=== PATIENT | male | born 1940 | race Caucasian/White ===

== ENCOUNTER 2017-03-12 14:46 | Inpatient (IN) | payer MEDICARE, OTHER ==
[~2017-03-12] VITALS: Ht 170.2 cm; Wt 102.1 kg
[2017-03-12] MEDS ORDERED: CEFEPIME HCL 1 GM VIAL IV STA (18:14)
[2017-03-12] MEDS ORDERED: VANCOMYCIN 1GM/NS 250 ML 250 ML IV STA (18:14)
[2017-03-12] MEDS ORDERED: ONDANSETRON HCL INJ 2 MG/ML VIAL IV PRN (18:15)
[2017-03-12] MEDS ORDERED: HYDROMORPHONE 1MG/1ML INJ IV PRN (18:15)
[2017-03-12 18:25] LABS: BASOPHILS # (AUTO) 0.1 (0.0-0.1); BASOPHILS % 0.6 % (0.0-1.0); EOSINOPHILS # (AUTO) 0.2 (0.0-0.4); EOSINOPHILS % 1.2 % (0.0-6.0); HEMATOCRIT 44.2 % (38.2-49.6); HEMOGLOBIN 14.4 g/dL (14.0-18.0); LYMPHOCYTES # (AUTO) 3.2 (1.0-3.2); LYMPHOCYTES % 24.6 % (18.0-39.1); MEAN CORPUSCULAR HGB CONC 32.6 g/dL (31-35); MEAN CORPUSCULAR VOLUME 98.2 fL (81-99); MONOCYTES # (AUTO) 1.2 (0.2-0.8); MONOCYTES % 9.1 % (4.4-11.3); NEUTROPHILS # (AUTO) 8.1 (2.1-6.9); NEUTROPHILS % 63.6 % (38.7-80.0); PLATELET COUNT 333 x10e3/uL (140-360); RED CELL DISTRIBUTION WIDTH 11.8 % (11.7-14.4)
[2017-03-12 18:52] LABS: ALANINE AMINOTRANSFERASE 42 IU/L (0-55); ALBUMIN 3.4 g/dL (3.5-5.0); ALBUMIN/GLOBULIN RATIO 0.6 (0.8-2.0); ALKALINE PHOSPHATASE 85 IU/L (40-150); ANION GAP 15.8 mmol/L (8-16); BLOOD UREA NITROGEN 10 mg/dL (7-26); BUN/CREATININE RATIO 11 (6-25); CARBON DIOXIDE 29 mmol/L (22-29); CHLORIDE 101 mmol/L (98-107); CREATININE, SERUM 0.88 mg/dL (0.72-1.25); EST GLOMERULAR FILTRATION RATE > 60 ML/MIN (60-); GLUCOSE 110 mg/dL (74-118); POTASSIUM 3.8 mmol/L (3.5-5.1); SODIUM 142 mmol/L (136-145)
--- NOTE | 2017-03-12 18:59 | Diagnostic Imaging Report ---
Portable chest x-ray INDICATION: Cellulitis COMPARISON: Chest x-ray 08/11/2009 FINDINGS: Frontal view of the chest obtained at 1829 hours. HEART AND MEDIASTINUM: The cardiomediastinal silhouette is normal. LINES: None. LUNGS: The lungs are well inflated and clear. No pneumonia or pulmonary edema. PLEURA: The costophrenic angles are sharp. No pneumothorax. BONES AND SOFT TISSUES: No focal osseous lesion. The soft tissues are normal. IMPRESSION: No acute cardiopulmonary process. Signed by: Dr. Gypsy Sharp MD on 03/12/2017 6:56 PM
[2017-03-12] MEDS ORDERED: CLINDAMYCIN HC300 MG PO (19:22)
[2017-03-12] MEDS ORDERED: LASIX40 MG PO (19:22)
[2017-03-12] MEDS ORDERED: ALLOPURINOL100 MG PO (19:22)
[2017-03-12] MEDS ORDERED: FELODIPINE ER2.5 MG PO (19:22)
[2017-03-12] MEDS ORDERED: ATENOLOL50 MG PO (19:27)
[2017-03-12] MEDS: SODIUM CHLORIDE FLUSH 10 ML SYR INJ PRN (22:45)
[2017-03-13] VITALS: BP 159/74
[2017-03-13 04:00] VITALS: BP 140/72
[2017-03-13 07:52] VITALS: BP 174/80
[2017-03-13 11:37] VITALS: BP 164/77
[2017-03-13] MEDS ORDERED: SODIUM CHLORIDE 0.9% 250ML 250 ML ONE (12:54)
[2017-03-13] MEDS: VANCOMYCIN 1GM/NS 250 ML 250 ML IV SCH (13:06)
[2017-03-13] MEDS: WATER STERILE 10 ML VIAL IV SCH ×2 (13:06→22:19)
[2017-03-13] MEDS: CEFEPIME HCL 1 GM VIAL IV SCH ×2 (13:06→22:19)
[2017-03-13 15:32] VITALS: BP 171/81
--- NOTE | 2017-03-13 18:52 | Diagnostic Imaging Report ---
PROCEDURE: A single AP view of the chest. COMPARISON chest radiograph 03/12/2017 INDICATIONS: LINE PLACEMENT FINDINGS: Lines/tubes: Right PICC catheter tip overlies the mid superior vena cava. Lungs: The lungs are moderately inflated. Mild bibasilar atelectasis. There is no evidence of pneumonia or pulmonary edema. Pleura: There is no pleural effusion or pneumothorax. Heart and mediastinum: The heart and the mediastinum are unremarkable. Bones: No acute bony abnormality. IMPRESSION: 1. Right PICC catheter tip overlies the mid superior vena cava. 2. No acute thoracic abnormalities. Dictated by: Real Topete M.D. on 03/13/2017 at 19:01 Electronically approved by: Real Topete M.D. on 03/13/2017 at 19:01
--- NOTE | 2017-03-13 19:15 | History and Physical ---
HISTORY OF PRESENT ILLNESS: Mr. De La Vega is a very pleasant 76-year-old white male who . The patient comes in with redness and redness and swelling of his leg which he had for a week, which is getting progressively worse while he was taking oral antibiotic. I felt he was failing oral antibiotics, and so he was admitted for IV, but also the patient has shortness of breath which we have been dealing with for some time. PAST MEDICAL HISTORY: Obesity and he thinks he may have diabetes. He is not so sure. ALLERGIES: NKA. PAST SURGICAL HISTORY: Denies. FAMILY HISTORY: Otherwise unremarkable. SOCIAL HISTORY: There is no smoking, drug abuse or alcohol abuse. REVIEW OF SYSTEMS: HEENT: Negative. PULMONARY: Negative. CARDIAC: Negative. He said he has low heart rate. I noticed he had shortness of breath even though he did not complain of it at the time he spent with me. Review of other systems otherwise unremarkable except for the pain and the redness and swelling of his leg he denies any pain. PHYSICAL EXAMINATION: GENERAL: Alert, and oriented and does not seem to be in acute distress. He is obese. VITAL SIGNS: Stable, currently afebrile. HEENT: Not icteric. Normocephalic. NECK: Supple. CHEST: Clear bilaterally. HEART: S1 and S2, no S3 or S4 and no murmur. ABDOMEN: Soft. Obese. EXTREMITIES: He does have redness and swelling of his whole leg from the toes all the way to the knee. MEDICATIONS: List reviewed. LABORATORY DATA: Reviewed. IMPRESSION: Cellulitis in a patient with obesity, failed oral antibiotic. Will put him back on vancomycin and cefepime. Will see how he does over the next few days. I am concerned he has underlying history of congestive heart failure. Will consult cardiology to see the patient. Will follow with you. Job#: [id number]
[2017-03-13 20:00] VITALS: BP 139/67
[2017-03-13] MEDS ORDERED: ZOLPIDEM TARTRATE 5 MG TAB PO PRN (20:30)
[2017-03-14] MEDS ORDERED: SODIUM CHLORIDE 0.9% 250ML 250 ML ONE (01:24)
[2017-03-14] MEDS: VANCOMYCIN 1GM/NS 250 ML 250 ML IV SCH ×3 (01:43→23:09)
[2017-03-14 04:00] VITALS: BP 147/67
[2017-03-14] MEDS: WATER STERILE 10 ML VIAL IV SCH ×3 (06:00→21:26)
[2017-03-14] MEDS: CEFEPIME HCL 1 GM VIAL IV SCH ×3 (06:02→21:26)
[2017-03-14 08:15] VITALS: BP 159/79
[2017-03-14 10:03] LABS: BASOPHILS # (AUTO) 0.1 (0.0-0.1); BASOPHILS % 0.6 % (0.0-1.0); EOSINOPHILS # (AUTO) 0.1 (0.0-0.4); EOSINOPHILS % 1.5 % (0.0-6.0); HEMATOCRIT 38.7 % (38.2-49.6); HEMOGLOBIN 12.6 g/dL (14.0-18.0); LYMPHOCYTES # (AUTO) 2.3 (1.0-3.2); LYMPHOCYTES % 25.6 % (18.0-39.1); MEAN CORPUSCULAR HGB CONC 32.6 g/dL (31-35); MEAN CORPUSCULAR VOLUME 98.2 fL (81-99); MONOCYTES # (AUTO) 0.8 (0.2-0.8); MONOCYTES % 8.9 % (4.4-11.3); NEUTROPHILS # (AUTO) 5.6 (2.1-6.9); PLATELET COUNT 327 x10e3/uL (140-360); RED BLOOD COUNT 3.94 x10e6/uL (4.3-5.7); RED CELL DISTRIBUTION WIDTH 11.6 % (11.7-14.4)
[2017-03-14 10:26] LABS: ALANINE AMINOTRANSFERASE 34 IU/L (0-55); ALBUMIN 2.7 g/dL (3.5-5.0); ALBUMIN/GLOBULIN RATIO 0.6 (0.8-2.0); ALKALINE PHOSPHATASE 63 IU/L (40-150); ANION GAP 13.2 mmol/L (8-16); BLOOD UREA NITROGEN 10 mg/dL (7-26); BUN/CREATININE RATIO 11 (6-25); CALCIUM 9.5 mg/dL (8.4-10.2); CARBON DIOXIDE 31 mmol/L (22-29); CHLORIDE 101 mmol/L (98-107); CHOL/HDL RATIO 4.5 (3.9-4.7); CHOLESTEROL 138 MD/DL (0-199); CREATININE, SERUM 0.94 mg/dL (0.72-1.25); EST GLOMERULAR FILTRATION RATE > 60 ML/MIN (60-); GLUCOSE 188 mg/dL (74-118); HDL CHOLESTEROL 31 MG/DL (40-60); LDL CHOLESTEROL 80 MG/DL (60-130); POTASSIUM 4.2 mmol/L (3.5-5.1); SODIUM 141 mmol/L (136-145); TRIGLYCERIDES 133 MG/DL (0-149)
[2017-03-14] MEDS: ASPIRIN 325 MG TAB PO SCH (11:58)
[2017-03-14] MEDS: FUROSEMIDE 40 MG TAB PO SCH (11:59)
[2017-03-14] MEDS: ATENOLOL 50 MG TAB PO SCH (11:59)
[2017-03-14] MEDS: LOSARTAN POTASSIUM 25 MG TAB PO SCH (11:59)
[2017-03-14 12:34] VITALS: BP 161/95
--- NOTE | 2017-03-14 13:37 | Consultation ---
DATE OF CONSULTATION: March 14, 2017 CARDIOLOGY CONSULTATION REASON FOR CONSULTATION: CHF. HISTORY OF PRESENT ILLNESS: This is a 76-year-old male with known history of hypertension, gout, questionable diabetes, and obesity. Patient presents to [facility] in the ER with complaint of left lower extremity redness, swelling. Was on antibiotic therapy as outpatient per his ID physician; however, failed p.o. outpatient therapy, was therefore recommended to go to the hospital for further evaluation and aggressive antibiotic therapy. Cardiology was consulted secondary to shortness of breath symptoms for some time. Patient was seen in room, in no acute distress, family at the bedside. Reports left lower extremity swelling for 7 days, was started on antibiotics; however, swelling and redness became worse. Therefore, came to the ER. Regarding his shortness of breath, patient states he has been off and on shortness of breath for some time, which he thinks is secondary to his weight. Patient denies any chest pains with activities; however, does get short of breath with mild to moderate activities. Positive for orthopnea. Denies any PND. Positive for lower extremity edema. PAST MEDICAL HISTORY 1. Obesity. 2. Gout. 3. Hypertension. 4. Questionable diabetes. PAST SURGICAL HISTORY 1. Umbilical hernia repair. 2. Appendectomy. 3. Bilateral cataract surgery. 4. Neck fusion. SOCIAL HISTORY: He is . Retired longshoreman and welder assistant. Denies any tobacco use. However, did state he did smoke for about 1 year when he was 19 years old. However, has not smoked since then. Positive for alcohol use, whiskey 4 to 6 shots per day. FAMILY HISTORY: Mother in the age of 70s; however, he is unknown of cause. Father at the age of 80, unknown cause. MEDICATIONS 1. Felodipine 2.5 once a day. 2. Allopurinol 100 mg once a day. 3. Atenolol 100 mg once a day. 4. Lasix 40 mg once a day. ALLERGIES: NO KNOWN ALLERGIES. REVIEW OF SYSTEMS GENERAL: Denies any weight changes, any fatigue, weakness, fevers, chills, night sweats. SKIN-[place]: Positive for soreness, redness left lower extremity. HEENT: Denies any traumas, any headaches, any nausea, vomiting, vision changes. Positive for ringing in the ears. Denies any hearing loss. Denies any stuffiness or anuria, any epistaxis. Denies any bleeding gums, hoarseness, sore throats. Positive for neck pains. CARDIAC: Denies any chest pain. Positive for dyspnea on exertion. Positive for orthopnea. Denies any PND. Positive for lower extremity edema, left greater than right. RESPIRATORY: Positive for shortness of breath with activities. Denies any wheezing, coughing, any sputum, any hemoptysis. GI: Good appetite. Denies any nausea, vomiting, diarrhea, constipation, any melena, hematemesis, hematochezia. URINARY: Denies any frequency, urgency, dysuria, hematuria, nocturia. VASCULAR: Positive for lower extremity edema, left greater than right. MUSCULOSKELETAL: Denies any muscle weakness. Positive for generalized joint pains, back pains and neck pain. NEUROLOGIC: Denies any numbness, tingling, tremors, paralysis, fainting, blackouts. ENDOCRINE: Denies any heat or cold intolerance, any excessive sweating, polyuria, polydipsia, polyphagia. PHYSICAL EXAMINATION VITAL SIGNS: Temperature 97.5, pulse 77, respiratory rate 20, blood pressure 159/79. Height 67 inches. Weight 225 pounds. GENERAL: Appears stated age, in no acute distress. Reliable informant. SKIN-[place]: Left lower extremity bruise, redness, swelling, and chronic venous changes. HEENT: Normocephalic. Pupils equal and reactive. Extraocular motor intact. Oral mucosa pink. No thyromegaly. No JVD. No carotid bruits noted. HEART-DE [place]: Regular rate and rhythm. Soft systolic murmur at the right upper sternal border. PMI about 5th intercostal space. LUNG-[place]: Bilateral breath sounds clear to auscultation; however, decreased in the bases. ABDOMEN: Soft, nontender. Distended. However, he is obese. No organomegaly noted. No CVA tenderness. MUSCULOSKELETAL: Good muscle strength throughout. VASCULAR: +2 bilateral radial pulses, +2 bilateral fem pulses, +1 DP/PT pulses bilaterally. NEUROLOGIC: Cranial nerves 2-12 seem intact. LAB-DE [place]: Sodium 142, potassium 3.8, chloride 29, BUN 10, creatinine 0.8. White count 12.7, hemoglobin 14, hematocrit 44, platelets 333. Chest x-ray showing no acute cardiopulmonary process. EKG pending. ASSESSMENT 1. Left leg cellulitis. 2. Dyspnea on exertion. 3. Hypertension. 4. Gout. 5. Obesity. 6. Obstructive sleep apnea. 7. Coronary artery disease likely in this patient. PLAN-[place] 1. Patient presents with lower extremity cellulitis and on IV antibiotics per ID service. 2. From a cardiac standpoint, patient denies any active chest pain symptoms; however, does get short of breath with minimal activities. 3. Will go ahead and order an echo to evaluate heart function and structure. Also will go ahead and get an EKG for baseline status. 4. Labs. Will go ahead and get some labs, lipid panel, BNP, A1c, TSH. 5. Will go ahead and restart his beta jered and Lasix therapy, plus will add a low-dose ARB therapy. 6. Long discussion with patient and family members. CAD is very likely given his risk factors and age. Advised that he would benefit from a stress test in the near future once his cellulitis has improved. Thank you very much for this consult. Will continue to follow patient and adjust therapy as clinical course progresses. Dictated by: Kashmir Michaels NP Seen and examined Agree with above Case discussed and explained to patient and family Will observe cellulitis healing progress DVT prophylaxis Job#: [id number] EV XI
[2017-03-14 16:28] VITALS: BP 160/88
[2017-03-14] MEDS: ENOXAPARIN SOD INJ 40 MG/0.4 ML SYR SC SCH (16:52)
[2017-03-14 20:00] VITALS: BP 152/77
[2017-03-14] MEDS: ATORVASTATIN 10 MG TAB PO SCH (21:25)
[2017-03-15] VITALS: BP 150/71
[2017-03-15 04:36] VITALS: BP 156/72
[2017-03-15] MEDS: CEFEPIME HCL 1 GM VIAL IV SCH ×3 (05:42→21:56)
[2017-03-15] MEDS: WATER STERILE 10 ML VIAL IV SCH ×3 (05:42→21:56)
[2017-03-15 07:49] VITALS: BP 130/85
[2017-03-15] MEDS: ASPIRIN 325 MG TAB PO SCH (08:47)
[2017-03-15] MEDS: FUROSEMIDE 40 MG TAB PO SCH (08:47)
[2017-03-15] MEDS: LOSARTAN POTASSIUM 25 MG TAB PO SCH (08:47)
[2017-03-15] MEDS: ATENOLOL 50 MG TAB PO SCH (08:47)
[2017-03-15] MEDS: VANCOMYCIN 1GM/NS 250 ML 250 ML IV SCH ×2 (11:38→23:50)
[2017-03-15 12:13] VITALS: BP 145/77
[2017-03-15] MEDS: ENOXAPARIN SOD INJ 40 MG/0.4 ML SYR SC SCH (16:44)
[2017-03-15 20:00] VITALS: BP 141/96
[2017-03-15] MEDS: ATORVASTATIN 10 MG TAB PO SCH (21:56)
[2017-03-16 00:12] VITALS: BP 135/62
[2017-03-16 04:25] VITALS: BP 153/67
[2017-03-16] MEDS: CEFEPIME HCL 1 GM VIAL IV SCH ×3 (06:14→21:35)
[2017-03-16] MEDS: WATER STERILE 10 ML VIAL IV SCH ×3 (06:14→21:35)
[2017-03-16 08:05] VITALS: BP 161/77
[2017-03-16] MEDS: FUROSEMIDE 40 MG TAB PO SCH (08:43)
[2017-03-16] MEDS: ATENOLOL 50 MG TAB PO SCH (08:43)
[2017-03-16] MEDS: ASPIRIN 325 MG TAB PO SCH (08:43)
[2017-03-16] MEDS: LOSARTAN POTASSIUM 25 MG TAB PO SCH (08:43)
[2017-03-16 11:47] VITALS: BP 138/75
[2017-03-16] MEDS: VANCOMYCIN 1GM/NS 250 ML 250 ML IV SCH ×2 (13:18→23:31)
--- NOTE | 2017-03-16 15:17 | Progress Note ---
DATE: March 16, 2017 Mr. De La Vega continues to do well. His leg is slowly better, less red. PHYSICAL EXAMINATION GENERAL: He is alert and oriented. Does not seem in acute distress. VITALS: Stable, afebrile. HEENT: Nonicteric. NECK: Supple. CHEST: Clear. COR: No murmur. ABDOMEN: Soft. Bowel sounds are present. No tenderness. EXTREMITIES: The leg is still erythematous, but better. IMPRESSION: Cellulitis, slowly better. Continue IV antibiotics. Possible discharge home tomorrow. Job#: [id number]
[2017-03-16 16:01] VITALS: BP 135/90
[2017-03-16] MEDS: ENOXAPARIN SOD INJ 40 MG/0.4 ML SYR SC SCH (17:28)
[2017-03-16 21:24] VITALS: BP 167/73
[2017-03-16] MEDS: ATORVASTATIN 10 MG TAB PO SCH (21:35)
[2017-03-16] MEDS: SODIUM CHLORIDE FLUSH 10 ML SYR INJ PRN (21:36)
[2017-03-17 00:52] VITALS: BP 152/66
[2017-03-17] MEDS: CEFEPIME HCL 1 GM VIAL IV SCH (05:45)
[2017-03-17] MEDS: WATER STERILE 10 ML VIAL IV SCH (05:45)
[2017-03-17 06:04] VITALS: BP 140/66
[2017-03-17 08:00] VITALS: BP 161/74
[2017-03-17] MEDS: ASPIRIN 325 MG TAB PO SCH (09:31)
[2017-03-17] MEDS: FUROSEMIDE 40 MG TAB PO SCH (09:31)
[2017-03-17] MEDS: LOSARTAN POTASSIUM 25 MG TAB PO SCH (09:31)
[2017-03-17] MEDS: ATENOLOL 50 MG TAB PO SCH (09:32)
[2017-03-17] MEDS ORDERED: ALTEPLASE RECOMBINANT 2 MG/2 ML VIAL IV ONE (10:45)
--- NOTE | 2017-03-17 11:39 | Discharge Summary ---
ADMITTING DIAGNOSES 1. Cellulitis. 2. Obesity. DISCHARGE DIAGNOSES 1. Cellulitis. 2. Obesity. This patient, who is a very pleasant, 76-year-old white male, came in with swelling of his legs. He failed outpatient oral antibiotic, 2 different courses. He was sent to the hospital for IV antibiotic. The patient started on intravenous antibiotics, namely vancomycin and cefepime, then subsequently showed improvement, but it was very slow. Toone to be on proper intravenous antibiotic, probably has to do with underlying history of obesity as well as lymphedema. The patient has a PICC line in. He was seen by cardiology, who felt there is no congestive heart failure. The patient is going to be discharged home with IV clindamycin and cefepime. Will reassess in a week. Patient will follow up with me in a week. MILVIA DIAZ MD Job#: [id number]
[2017-03-17 12:00] VITALS: BP 142/76
[2017-03-17] MEDS ORDERED: WATER STERILE 10 ML VIAL IV SCH (14:00)
[2017-03-17] MEDS ORDERED: CLINDAMYCIN 600MG/D5W 50ML 50 ML IV SCH (14:00)
[2017-03-17] MEDS ORDERED: CEFTAZIDIME 1 GM VIAL IV SCH (14:00)
[2017-03-17] MEDS ORDERED: CEFTAZIDIME IV SCH (14:00)
[2017-03-17] MEDS ORDERED: WATER STERILE IV SCH (14:00)
== END 2017-03-17 14:34 | disposition home or self-care (01) | DRG 603 ==
LOC: ER 14:46 → ERHOLD 18:41 → MED/SURG2 21:33
PROVIDERS: ADMIT Internal Medicine Infectious Disease; ATTEND Internal Medicine Infectious Disease
PROC: 02HV33Z Insertion of Infusion Device into Superior Vena Cava, Percutaneous Approach (ICD-10-PCS; principal; 2017-03-13)
DX: L03.116 Cellulitis of left lower limb (principal); I11.0 Hypertensive heart disease with heart failure; I50.9 Heart failure, unspecified; E88.09 Other disorders of plasma-protein metabolism, not elsewhere classified; L03.115 Cellulitis of right lower limb; E66.9 Obesity, unspecified; Z68.35 Body mass index [BMI] 35.0-35.9, adult; I88.1 Chronic lymphadenitis, except mesenteric; I89.0 Lymphedema, not elsewhere classified; G47.33 Obstructive sleep apnea (adult) (pediatric); I25.10 Atherosclerotic heart disease of native coronary artery without angina pectoris; M10.9 Gout, unspecified; I87.2 Venous insufficiency (chronic) (peripheral)
CPT/HCPCS: 36415; 36569; 71010; 80053; 80061; 80202; 82948; 83036; 83880; 84443; 85025; 93005; 93306; 93970; 99284; J0692; J1650; J2997; J3370; J7050

== ENCOUNTER → 2017-05-29 | Outpatient (CLI) | payer MEDICARE, OTHER ==
[~2017-05-29] MED LIST: ALLOPURINOL100 MG PO; ATENOLOL50 MG PO; CLINDAMYCIN HC150 MG PO; CLINDAMYCIN HC300 MG PO; FELODIPINE ER2.5 MG PO; GARLIC200 MG PO; LASIX40 MG PO; MULTI-VITAMIN1 EACH PO; POTASSIUM CHLO20 ME1 PO; VITAMIN B-1250 MCG PO; VITAMIN D400 UNIT PO; VITAMIN E400 UNI1 PO
[2017-05-29 13:47] LABS: BASOPHILS # (AUTO) 0.1 (0.0-0.1); BASOPHILS % 0.8 % (0.0-1.0); EOSINOPHILS # (AUTO) 0.1 (0.0-0.4); EOSINOPHILS % 1.2 % (0.0-6.0); HEMATOCRIT 42.3 % (38.2-49.6); HEMOGLOBIN 13.8 g/dL (14.0-18.0); LYMPHOCYTES # (AUTO) 3.9 (1.0-3.2); LYMPHOCYTES % 42.2 % (18.0-39.1); MEAN CORPUSCULAR HEMOGLOBIN 30.6 pg (28-32); MEAN CORPUSCULAR HGB CONC 32.6 g/dL (31-35); MEAN CORPUSCULAR VOLUME 93.8 fL (81-99); MONOCYTES # (AUTO) 0.9 (0.2-0.8); MONOCYTES % 9.8 % (4.4-11.3); NEUTROPHILS # (AUTO) 4.2 (2.1-6.9); NEUTROPHILS % 45.7 % (38.7-80.0); PLATELET COUNT 218 x10e3/uL (140-360); RED BLOOD COUNT 4.51 x10e6/uL (4.3-5.7); RED CELL DISTRIBUTION WIDTH 14.7 % (11.7-14.4)
[2017-05-29 14:07] LABS: ALANINE AMINOTRANSFERASE 20 IU/L (0-55); ALBUMIN 3.6 g/dL (3.5-5.0); ALBUMIN/GLOBULIN RATIO 0.9 (0.8-2.0); ALKALINE PHOSPHATASE 66 IU/L (40-150); BLOOD UREA NITROGEN 13 mg/dL (7-26); BUN/CREATININE RATIO 13 (6-25); CALCIUM 8.9 mg/dL (8.4-10.2); CARBON DIOXIDE 31 mmol/L (22-29); CHLORIDE 102 mmol/L (98-107); EST GLOMERULAR FILTRATION RATE > 60 ML/MIN (60-); GLUCOSE 144 mg/dL (74-118); SODIUM 142 mmol/L (136-145)
--- NOTE | 2017-05-29 14:33 | Diagnostic Imaging Report ---
PROCEDURE:CHEST 2 VIEWS TECHNIQUE:PA and lateral chest INDICATION:Preoperative evaluation for cystic mass surgery. COMPARISON:[facility], DX, CHEST XRAY LINE PLACEMENT, 03/13/2017, 18:04. FINDINGS: Lungs are clear and symmetrically inflated. No pleural effusions. Enlarged cardiac silhouette. Mild central vascular prominence. Mildly tortuous thoracic aorta. Intact skeleton. CONCLUSION: Cardiomegaly with mild central vascular congestion. Dictated by: Reji Belcher M.D. on 05/29/2017 at 14:33 Electronically approved by: Reji Belcher M.D. on 05/29/2017 at 14:33
== END ==
LOC: DX 17:28 → EDSTATUS 05-30 09:30
PROVIDERS: ATTEND Surgery
DX: Z01.818 Encounter for other preprocedural examination (principal); Z53.8 Procedure and treatment not carried out for other reasons; D48.7 Neoplasm of uncertain behavior of other specified sites
CPT/HCPCS: 36415; 71046; 80053; 85025; 93005

== ENCOUNTER → 2017-07-01 | Day surgery (SDC) | payer MEDICARE, OTHER ==
[2017-06-30 10:19] LABS: BASOPHILS # (AUTO) 0.1 (0.0-0.1); BASOPHILS % 1.2 % (0.0-1.0); EOSINOPHILS # (AUTO) 0.2 (0.0-0.4); EOSINOPHILS % 2.2 % (0.0-6.0); HEMATOCRIT 46.4 % (38.2-49.6); HEMOGLOBIN 15.7 g/dL (14.0-18.0); LYMPHOCYTES # (AUTO) 2.8 (1.0-3.2); LYMPHOCYTES % 40.2 % (18.0-39.1); MEAN CORPUSCULAR HEMOGLOBIN 30.8 pg (28-32); MEAN CORPUSCULAR HGB CONC 33.8 g/dL (31-35); MEAN CORPUSCULAR VOLUME 91.2 fL (81-99); MONOCYTES # (AUTO) 0.7 (0.2-0.8); MONOCYTES % 9.5 % (4.4-11.3); NEUTROPHILS # (AUTO) 3.2 (2.1-6.9); NEUTROPHILS % 46.8 % (38.7-80.0); PLATELET COUNT 229 x10e3/uL (140-360); RED BLOOD COUNT 5.09 x10e6/uL (4.3-5.7); RED CELL DISTRIBUTION WIDTH 13.2 % (11.7-14.4)
[2017-06-30 10:26] LABS: INR 1.23; PROTHROMBIN TIME 14.6 seconds (11.9-14.5)
[2017-06-30 10:34] LABS: ALANINE AMINOTRANSFERASE 29 IU/L (0-55); ALBUMIN 3.8 g/dL (3.5-5.0); ALBUMIN/GLOBULIN RATIO 0.9 (0.8-2.0); ALKALINE PHOSPHATASE 68 IU/L (40-150); ANION GAP 14.9 mmol/L (8-16); BLOOD UREA NITROGEN 17 mg/dL (7-26); BUN/CREATININE RATIO 18 (6-25); CALCIUM 9.4 mg/dL (8.4-10.2); CARBON DIOXIDE 26 mmol/L (22-29); CHLORIDE 103 mmol/L (98-107); CHOL/HDL RATIO 2.8 (3.9-4.7); CHOLESTEROL 156 MD/DL (0-199); CREATININE, SERUM 0.96 mg/dL (0.72-1.25); EST GLOMERULAR FILTRATION RATE > 60 ML/MIN (60-); GLUCOSE 120 mg/dL (74-118); HDL CHOLESTEROL 56 MG/DL (40-60); LDL CHOLESTEROL 66 MG/DL (60-130); POTASSIUM 3.9 mmol/L (3.5-5.1); SODIUM 140 mmol/L (136-145); TRIGLYCERIDES 168 MG/DL (0-149)
[~2017-07-01] VITALS: Ht 170.2 cm; Wt 104.3 kg
[~2017-07-01] MED LIST changes: +ASPIRIN 325 MG TAB ONE; +BIVALIRUDIN 250 MG/VIAL IV ONE; +FENTANYL CITRATE/PF 100MCG/2 ML INJ ONE; +HEPARIN SOD (PORCINE) 1000 UNIT/ML 30ML ONE; +HEPARIN SOD/SOD CHLORIDE 2,000 ML ONE; +HYDROMORPHONE 1MG/1ML INJ IV PRN; +IOPAMIDOL 370 MG/ML 200 ML INFUS..BTL INJ ONE; +LIDOCAINE HCL 2% LOCAL 20 ML VIAL ONE; +MIDAZOLAM HCL 2 MG/2 ML VIAL ONE; +NITROGLYCERIN/D5W 200 MCG/ML 250 ML ONE; +PRASUGREL 10 MG TAB ONE; +SODIUM CHLORIDE 0.9% 1000ML 1,000 ML IV SCH; +SODIUM CHLORIDE 0.9% 1000ML 1,000 ML ONE; +SODIUM CHLORIDE 0.9% 50ML 50 ML ONE
[2017-07-01 09:23] VITALS: BP 126/76
--- OUTSIDE RECORDS SUMMARY | 2017-07-01 09:40 | XMS REPORT ---
Author Author [facility] Address Unknown Phone Unavailable Care Team Providers Care System Administrator Name Role Phone BERNY ROD Unavailable Unavailable MILVIA DIAZ Unavailable Unavailable Problems This patient has no known problems. Allergies, Adverse Reactions, Alerts This patient has no known allergies or adverse reactions. Medications This patient has no known medications. Results Test Description Test Time Test Comments Text Results Atomic Results Result Comments CHEST 2 VIEWS [place] [address] Patient Name: SERG REGALADO MR #: [id number] : 1940 Age/Sex: 76/M Req # : [id number] [facility] Physician: Ordered by: BERNY ROD MD Report #: [id number] Location: OR Room/Bed: Procedure: [id number] DX/CHEST 2 VIEWS Exam Date: 05/29/17 Exam Time : 1345 REPORT STATUS: Signed PROCEDURE: CHEST 2 VIEWS TECHNIQUE: PA and lateral chest INDICATION: Preoperative evaluation for cystic mass surgery. COMPARISON: [facility], DX, CHEST XRAY LINE PLACEMENT , 03/13/2017, 18:04. FINDINGS: Lungs are clear and symmetrically inflated. No pleural effusions. Enlarged cardiac silhouette. Mild central vascular prominence. Mildly tortuous thoracic aorta. Intact skeleton. CONCLUSION: Cardiomegaly with mild central vascular congestion. Dictated by: Mary Belcher M.D. on 05/29/2017 at 14:33 Electronically approved by: Mary Belcher M.D. on 05/29/2017 at 14:33 Dictated By: MARY BELCHER MD 32 Transcribed By: MARIAM on 05/29/171432 COPY TO: BERNY ROD MD CHEST XRAY LINE PLACEMENT [place] [address] Patient Name: SERG REGALADO MR #: [id number] : 1940 Age/Sex: 76/M Req #: [id number] Adm Physician: MILVIA DIAZ MD Ordered by: MILVIA DIAZ MD Report #: [id number] Location: [facility] Room/Bed: [facility] Procedure: [id number] DX/CHEST XRAY LINE PLACEMENT Exam Date: 03/13/17 Exam Time: 1810 REPORT STATUS: Signed PROCEDURE: A single AP view of the chest. COMPARISON chest radiograph 03/12/2017 INDICATIONS: LINE PLACEMENT FINDINGS: Lines/tubes: Right PICC catheter tip overlies the mid superior vena cava. Lungs: The lungs are moderately inflated. Mild bibasilar atelectasis. There is no evidence of pneumonia or pulmonary edema. Pleura: There is no pleural effusion or pneumothorax. Heart and mediastinum: The heart and the mediastinum are unremarkable. Bones: No acute bony abnormality. IMPRESSION: 1. Right PICC catheter tip overlies the mid superior vena cava. 2. No acute thoracic abnormalities. Dictated by: Real Goodson M.D. on 03/13/2017 at 19:01 Electronically approved by: Real Goodson M.D. on 03/13/2017 at 19:01 Dictated By: REAL GOODSON MD 00 Transcribed By: MARIAM on 03/13/171900 COPY TO: MILVIA DIAZ MD CHEST SINGLE (PORTABLE) [place] [address] Patient Name: SERG REGALADO MR #: [id number] : 1940 Age/Sex: 76/M Req #: [id number] Adm Physician: MILVIA DIAZ MD Ordered by: LEONIDES JAIMES MD Report #: [id number] Location: [facility] Room/Bed: [place] [address] Procedure: [id number] DX/CHEST SINGLE (PORTABLE) Exam Date: 03/12/17 Exam Time: 184 REPORT STATUS: Signed Portable chest x-ray INDICATION: Cellulitis COMPARISON: Chest x-ray 08/11/2009 FINDINGS: Frontal view of the chest obtained at 1829 hours. HEART AND MEDIASTINUM: The cardiomediastinal silhouette is normal. LINES: None. LUNGS: The lungs are well inflated and clear. No pneumonia or pulmonary edema. PLEURA: The costophrenic angles are sharp. No pneumothorax. BONES AND SOFT TISSUES: No focal osseous lesion. The soft tissues are normal. IMPRESSION: No acute cardiopulmonary process. Signed by: Dr. Kermit Sharp MD on 2016 6:56 PM Dictated By: KERMIT SHARP MD 55 Transcribed By: MAHIN on 03/12/171855 COPY TO: LEONIDES JAIMES MD
--- OUTSIDE RECORDS SUMMARY | 2017-07-01 09:40 | XMS REPORT | Clinical Summary ---
Author Author [facility] Organization [facility] Address Unknown Phone Unavailable Care Team Providers Care Physician Surgeon Name Role Phone Asked, Pcp PCP Unavailable Allergies No Known Allergies Current Medications Prescription Sig. Disp. Refills Start End Date Status Date clindamycin (CLEOCIN HCL) Take 1 capsule (300 mg 30 capsule 0 03/16/20 300 MG capsule total) by mouth 3 (three) 17 17 times a day for 10 days. Active Problems Not on file Encounters Date Type Specialty Care Team Description 03/06/2017 Emergency Emergency Medicine Del Birmingham MD Left leg cellulitis (Primary Dx) after 06/30/2016 Social History Tobacco Use Types Packs/Day Years Used Date Never Assessed Sex Assigned at Date Recorded Not on file Last Filed Vital Signs Vital Sign Reading Time Taken Blood Pressure 157/73 03/06/2017 11:47 PM [employer]LINE ADVERTISING MANAGER Pulse 91 03/06/2017 11:47 PM ONLINE ADVERTISING MANAGER Temperature 37.8 C (100.1 F) 03/06/2017 7:46 PM ONLINE ADVERTISING MANAGER Respiratory Rate 20 03/06/2017 11:47 PM ONLINE ADVERTISING MANAGER Oxygen Saturation 95% 03/06/2017 11:47 PM ONLINE ADVERTISING MANAGER Inhaled Oxygen - - Concentration Weight - - Height 170.2 cm (5' 7") 03/06/2017 7:46 PM ONLINE ADVERTISING MANAGER Body Mass Index - - Plan of Treatment Health Maintenance Due Date Last Done Comments COLONOSCOPY 12/14/1991 ZOSTER VACCINE 2001 PNEUMOCOCCAL 2006 POLYSACCHARIDE VACCINE AGE 65 AND OVER PNEUMOCOCCAL-13 2006 INFLUENZA VACCINE 10/29/2016 Results * ECG ED Preliminary Interpretation - NOT AN ORDER (03/07/2017 5:18 PM) Narrative Del Birmingham MD 03/07/20175:18 PM ECG ED Preliminary Interpretation - Not an Order Performed by: DEL BIRMINGHAM Authorized by: DEL BIRMINGHAM ECG reviewed by ED Physician in the absence of a shuttle car operator: yes Previous ECG: Previous ECG:Unavailable Interpretation: Interpretation: abnormal Rate: ECG rate:93 ECG rate assessment: normal Rhythm: Rhythm: sinus rhythm and atrial fibrillation Ectopy: Ectopy: none QRS: QRS axis:Normal QRS intervals:Normal Conduction: Conduction: abnormal Abnormal conduction: complete LBBB ST segments: ST segments:Normal T waves: T waves: normal * PV duplex venous lower extremity (03/06/2017 10:34 PM) Specimen Performing Laboratory [facility] [address] [place] [address] Narrative EXAM:US DUPLEX VENOUS LOWER EXTREMITY LEFT CLINICAL HISTORY:left leg swelling and pain TECHNIQUE:Grayscale, color Doppler, and spectral waveform analysis of the left lower extremity deep venous system was performed. The common femoral, superficial femoral, proximal deep femoral, greater saphenous, and popliteal veins were evaluated. The calf veins and contralateral right common femoral vein were also evaluated. COMPARISON:None. FINDINGS: The left common femoral, superficial femoral, and popliteal veins are compressible. They demonstrate normal venous waveforms and response to augmentation. There is flow in the visualized calf veins. There is no evidence of a popliteal or Ibanez's cyst. The contralateral right common femoral vein is patent. IMPRESSION: 1.Normal left lower extremity venous Doppler examination. There is no evidence of deep venous thrombosis. [facility]-[id number] Procedure Note Interface, Radiology Results Incoming - 03/06/2017 10:43 PM ONLINE ADVERTISING MANAGER EXAM: US DUPLEX VENOUS LOWER EXTREMITY LEFT CLINICAL HISTORY: left leg swelling and pain TECHNIQUE: Grayscale, color Doppler, and spectral waveform analysis of the left lower extremity deep venous system was performed. The common femoral, superficial femoral, proximal deep femoral, greater saphenous, and popliteal veins were evaluated. The calf veins and contralateral right common femoral vein were also evaluated. COMPARISON: None. FINDINGS: The left common femoral, superficial femoral, and popliteal veins are compressible. They demonstrate normal venous waveforms and response to augmentation. There is flow in the visualized calf veins. There is no evidence of a popliteal or Ibanez's cyst. The contralateral right common femoral vein is patent. IMPRESSION: 1. Normal left lower extremity venous Doppler examination. There is no evidence of deep venous thrombosis. [facility]-[id number] * Estimated GFR (03/06/2017 9:14 PM) Component Value Ref Range GFR Non Af Amer 59 (A) mL/min/1.73 m2 GFR Af Amer 71 mL/min/1.73 m2 Comment: Chronic kidney disease: <60 mL/min/1.73m2 Kidney failure: <15 mL/min/1.73m2 The estimated GFR is calculated from the IDMS-traceable Modification of Diet in Renal Disease Equation. The accuracy of the calculation is poor when the creatinine is normal. Calculated values >90 mL/min/1.73m2 are not reported. This equation has not been validated in children (<18 years), women, the elderly (>70 years), or ethnic groups other than Caucasians and Americans. Specimen Performing Laboratory Plasma specimen [facility] [place] [facility] [address] [place] [address] * Troponin (03/06/2017 9:14 PM) Component Value Ref Range Troponin <0.01 0.00 - 0.60 ng/mL Comment: 0.11 - 1.49 ng/ml May indicate increased risk of acute coronary syndrome. >=1.5 ng/ml Consistent with acute myocardial infarction. The diagnostic value of a single normal or non-diagnostic result is questionable. Serial samples at 2-6 hour intervals are required to rule out acute myocardial injury. Specimen Performing Laboratory Plasma specimen [facility] [place] [facility] [address] [place] [address] * D-dimer (03/06/2017 9:14 PM) Component Value Ref Range D-dimer 0.54 (H) 0.00 - 0.40 ug/mL FEU Comment: Units are ug/ml Fibrinogen Equivalent Unit. When combined with low clinical probability, D-dimer results of less than 0.5 ug/ml FEU have a good negative predictive value in excluding PE or DVT. For D-dimer results greater than 0.5 ug/ml FEU further testing is indicated if PE or DVT is suspected clinically. Elevated D-dimer results have been reported in DVT, PE, and DIC cases and may indicate the presence of a clot. D-dimer results may be elevated due to old age, , inflammatory diseases, trauma, post-operative states, sepsis, and malignancies. Specimen Performing Laboratory Blood [facility] [place] [facility] [address] [place] [address] * CBC with platelet and differential (03/06/2017 9:14 PM) Component Value Ref Range WBC 23.1 (H) 4.2 - 11.0 k/uL RBC 4.69 4.04 - 5.86 m/uL HGB 15.1 13.0 - 17.3 g/dL HCT 44.4 34.0 - 45.0 % MCV 94.7 80.0 - 98.0 fL MCH 32.2 27.0 - 34.0 pg MCHC 34.0 31.5 - 36.5 g/dL RDW - SD 40.3 37.0 - 51.0 fL MPV 10.4 7.4 - 10.4 fL Platelet count 244 150 - 400 k/uL Nucleated RBC 0.00 /100 WBC Neutrophils 88.1 (H) 36.0 - 66.0 % Lymphocytes 5.7 (L) 24.0 - 44.0 % Monocytes 4.9 0.0 - 6.0 % Eosinophils 0.0 0.0 - 6.0 % Basophils 0.3 0.0 - 1.2 % Immature granulocytes 1.0 0.0 - 1.0 % Specimen Performing Laboratory Blood [facility] [place] [facility] OF [facility]OLOGY AND [facility]OMIC MEDICINE [address] [place] [address] * Creatine kinase, total (CPK) (03/06/2017 9:14 PM) Component Value Ref Range Creatine kinase 88 61 - 224 U/L Specimen Performing Laboratory Plasma specimen [facility] [place] [facility]OLOGY AND GENOMIC MEDICINE [address] [place] [address] * Comprehensive metabolic panel (03/06/2017 9:14 PM) Component Value Ref Range Sodium 138 135 - 150 mEq/L Potassium 4.4 3.5 - 5.0 mEq/L Chloride 97 (L) 100 - 109 mEq/L CO2 31 24 - 32 mmol/L Anion gap 10 7 - 15 mEq/L Comment: Starting from June , anion gap calculation no longer incorporates potassium. Please note the change. BUN 14 7 - 18 mg/dL Creatinine 1.2 0.8 - 1.5 mg/dL Glucose 141 (H) 65 - 100 mg/dL Calcium 9.1 8.6 - 10.7 mg/dL Protein 8.3 (H) 6.3 - 8.2 g/dL Albumin 3.4 3.2 - 5.0 g/dL A/G ratio 0.7 0.7 - 3.8 Alkaline phosphatase 85 30 - 120 U/L AST 15 15 - 37 U/L ALT 28 (L) 30 - 65 U/L Total bilirubin 0.7 0.2 - 1.2 mg/dL Specimen Performing Laboratory Plasma specimen [facility] [place] [facility]OLOGY AND GENOMIC MEDICINE [address] [place] [address] * ECG 12 lead (03/06/2017 7:57 PM) Component Value Ref Range Ventricular rate 93 Atrial rate 93 FL interval 178 QRSD interval 138 QT interval 368 QTC interval 457 P axis 1 46 QRS axis 1 -77 T wave axis 84 EKG impression Normal sinus rhythm-Left axis deviation-Left bundle branch block-Abnormal ECG-No previous ECGs available- Specimen Performing Laboratory [facility] [address] [place] [address] after 06/30/2016 Insurance Payer Benefit Subscriber ID Type Phone Address Plan / Group CIGNA CIGNA xxxxxxxxxxx Indemnity INDEMNITY MEDICARE MEDICARE xxxxxxxxxx Medicare [place], [place] PART A AND B
--- NOTE | 2017-07-01 13:08 | Operative Report ---
DATE OF PROCEDURE: July 01, 2017 INDICATIONS: Coronary artery disease, abnormal stress test with apical ischemia. PROCEDURES PERFORMED 1. Left heart catheterization, selective coronary angiography and left ventriculography. 2. Percutaneous transluminal coronary angioplasty and drug-eluting stent placed in the proximal left anterior descending artery. 3. Deployment of right groin Perclose. COMPLICATIONS: None. BLOOD LOSS: 10 mL. RECOMMENDATIONS: Triple antiplatelet anticoagulant therapy for the next 3 months followed by dual Eliquis and aspirin lifelong for atrial fibrillation. Access was obtained in the right femoral artery. A 6-Moldovan sheath was placed. Diagnostic coronary angiogram revealed patent left main. Proximal and mid left anterior descending artery at the site of the origin of the diagonal artery had 70% stenosis. Distal LAD had 50% stenosis. Circumflex right coronary artery had mild 10% to 20% stenosis. LV ejection fraction 65%. LV end-diastolic pressure of 10. No gradient across the aortic valve on pullback. A decision was made to intervene on the left anterior descending artery. The patient received intravenous Angio-Max and oral Effient for anticoagulation. The left main was cannulated using a 6-Moldovan XB 3.5 guiding catheter. A short Runthrough wire was advanced for support. Primary stent 2.75 x 24 mm at 20 atmospheres followed by 3.5 mm proximal postdilatation balloon at 12 to 18 atmospheres. Excellent end result, GRACIE-3 flow, less than 10% residual stenosis. No complications. The right groin repaired using Perclose. Patient observed in the hospital for 6 hours and discharged home the same day on optimal medical therapy. Job#: [id number]
== END | disposition home or self-care (01) ==
LOC: CATH LAB 09:38
PROVIDERS: ATTEND Internal Medicine Interventional Cardiology
DX: I25.10 Atherosclerotic heart disease of native coronary artery without angina pectoris (principal); R94.39 Abnormal result of other cardiovascular function study; I48.2 Chronic atrial fibrillation; I11.0 Hypertensive heart disease with heart failure; I50.22 Chronic systolic (congestive) heart failure; I87.2 Venous insufficiency (chronic) (peripheral); Z01.812 Encounter for preprocedural laboratory examination; Z68.36 Body mass index [BMI] 36.0-36.9, adult
CPT/HCPCS: 93458; C9600; 36140; 36415; 77002; 80053; 80061; 85025; 85610; 92920; 93452; C1769; J0583; J1644; J2001; J2250; J7030; Q9967

== ENCOUNTER → 2018-04-08 | Outpatient (CLI) | payer MEDICARE, OTHER ==
[~2018-04-08] MED LIST changes: -ASPIRIN 325 MG TAB ONE; -BIVALIRUDIN 250 MG/VIAL IV ONE; -FENTANYL CITRATE/PF 100MCG/2 ML INJ ONE; -HEPARIN SOD (PORCINE) 1000 UNIT/ML 30ML ONE; -HEPARIN SOD/SOD CHLORIDE 2,000 ML ONE; -HYDROMORPHONE 1MG/1ML INJ IV PRN; -IOPAMIDOL 370 MG/ML 200 ML INFUS..BTL INJ ONE; -LIDOCAINE HCL 2% LOCAL 20 ML VIAL ONE; +LORAZEPAM INJ 2 MG/ML VIAL ONE; -MIDAZOLAM HCL 2 MG/2 ML VIAL ONE; -NITROGLYCERIN/D5W 200 MCG/ML 250 ML ONE; -PRASUGREL 10 MG TAB ONE; -SODIUM CHLORIDE 0.9% 1000ML 1,000 ML IV SCH; -SODIUM CHLORIDE 0.9% 1000ML 1,000 ML ONE; -SODIUM CHLORIDE 0.9% 50ML 50 ML ONE
--- NOTE | 2018-04-08 14:01 | Diagnostic Imaging Report ---
Examination: MRI SPINE LUMBAR WITHOUT CONTRAST History: Low back pain. Comparison studies: None Technique: Sagittal, coronal and axial T2 , sagittal T1 and STIR; axial spin density oblique. Findings: Number of lumbar vertebral bodies: Five. Alignment: Normal lordosis. No scoliosis. Soft tissues: No T2 hyperintense inflammatory changes. Posterior paraspinal soft tissues and muscles: No abnormality. Lower thoracic cord: Normal in signal and morphology. The tip of the conus is at L1. Cauda equina: No masses. No arachnoiditis. Vertebrae: No fractures, infection or neoplasm. Inferior endplate Schmorl's note of T11 with adjacent fat signal. Atypical hemangioma of the inferior endplate of L3 (4 mm). Inferior endplates Schmorl's nodes at L1 and L2. Degenerative changes: L1-L2: Mild bilateral facet arthropathy. No degenerative disc or foraminal or canal stenosis. L2-L3: Diffuse bulge and mild bilateral facet arthropathy result in mild canal stenosis. No foraminal stenosis. L3-L4: Mild diffuse disc and mild bilateral facet arthropathy. No canal or foraminal stenosis. Trace bilateral facet joint effusions. L4-L5: Mild diffuse disc bulge and mild bilateral facet arthropathy. No foraminal or canal stenosis. Trace bilateral facet joint effusions. L5-S1: Mild retrolisthesis (2 mm). Mild diffuse disc bulge and mild bilateral facet arthropathy result in moderate right and severe left neural foraminal narrowing. No canal stenosis. IMPRESSION: 1. Degenerative change from L1-L2 through L5-S1 with mild canal stenosis at L2-L3. 2. Moderate right and severe left foraminal narrowing at L5-S1. 3. Mild retrolisthesis of L5 on S1. Signed by: Dr. Cally Duffy M.D. on 04/08/2018 1:58 PM
== END ==
LOC: MRI 11:36
PROVIDERS: ATTEND Family Medicine
DX: M47.896 Other spondylosis, lumbar region (principal)
CPT/HCPCS: 72148; J2060

== ENCOUNTER → 2018-05-18 | Outpatient (CLI) | payer MEDICARE, OTHER ==
[~2018-05-18] MED LIST changes: -LORAZEPAM INJ 2 MG/ML VIAL ONE
--- NOTE | 2018-05-18 15:28 | Diagnostic Imaging Report ---
Exam: Lumbar spine with obliques History: Spondylolisthesis at L5-S1 Comparison: Lumbar spine MRI 04/08/2018 Findings: 5 nonrib-bearing lumbar-type vertebral bodies. No acute displaced fracture or subluxation. No pars interarticularis defects on the oblique radiographs. Mild multilevel disc space narrowing and endplate sclerosis most notably at L4-5 and L5-S1. Retrolisthesis of L5 over S1 described on the comparison MRI is poorly visualized by plain radiography. No inducible malalignment on flexion/extension views. Atherosclerotic vascular calcifications. Impression: No acute osseous abnormality. No spondylolysis per clinical query. Multilevel degenerative disc changes and facet arthropathy as described on comparison MRI 04/08/2018. Signed by: Dr. Kashmir Foster M.D. on 05/18/2018 3:24 PM
== END ==
LOC: RAD 14:04
PROVIDERS: ATTEND Pain Medicine Pain Medicine
DX: M43.17 Spondylolisthesis, lumbosacral region (principal)
CPT/HCPCS: 72114

== ENCOUNTER → 2019-05-12 | Day surgery (SDC) | payer MEDICARE, OTHER ==
[2019-05-07 14:06] LABS: BASOPHILS # (AUTO) 0.1 (0.0-0.1); BASOPHILS % 0.9 % (0.0-1.0); EOSINOPHILS # (AUTO) 0.1 (0.0-0.4); EOSINOPHILS % 0.6 % (0.0-6.0); HEMATOCRIT 42.3 % (38.2-49.6); HEMOGLOBIN 14.2 g/dL (14.0-18.0); LYMPHOCYTES # (AUTO) 2.5 (1.0-3.2); LYMPHOCYTES % 30.8 % (18.0-39.1); MEAN CORPUSCULAR HEMOGLOBIN 32.3 pg (28-32); MEAN CORPUSCULAR HGB CONC 33.6 g/dL (31-35); MEAN CORPUSCULAR VOLUME 96.1 fL (81-99); MONOCYTES # (AUTO) 0.7 (0.2-0.8); MONOCYTES % 8.5 % (4.4-11.3); NEUTROPHILS # (AUTO) 4.8 (2.1-6.9); NEUTROPHILS % 58.8 % (38.7-80.0); PLATELET COUNT 184 x10e3/uL (140-360); RED CELL DISTRIBUTION WIDTH 12.8 % (11.7-14.4)
[~2019-05-12] MED LIST changes: +ASPIR 8181 MG PO; +ATORVASTATIN CA20 MG PO; +ELIQUIS5 M1 PO; +GABAPENTIN300 MG PO; +GLUCAGON FOR INJ 1 MG VIAL ONE; +HYOSCYAMINE 0.125 MG TAB ONE; +LISINOPRIL2.5 MG PO; +METOPROLOL SUCC25 MG PO; +PROPOFOL IV EMULSION 10 MG/ML 50 ML VIAL ONE
[2019-05-12 13:20] VITALS: BP 113/71
--- NOTE | 2019-05-12 14:55 | Operative Report ---
DATE OF PROCEDURE: 05/12/2019 SURGEON: Twin Glass MD PROCEDURE: Colonoscopy with polypectomy. INDICATIONS FOR COLONOSCOPY: Colorectal cancer screening. MEDICATIONS: The patient was done under MAC, please see anesthesiologist's note. PROCEDURE IN DETAIL: With the patient in the left lateral decubitus position, the flexible fiberoptic Olympus colonoscope was inserted into the rectum with ease and advanced all the way to the cecum. Some retained stools were noted in the colon. The scope was then withdrawn slowly whatever was visualized, mucosa overlying the cecum and ascending colon appeared to be within normal limits. One polyp approximately 6 mm sessile was removed per snare electrocautery from the transverse colon. One polyp was hot biopsied and one polyp was removed per snare electrocautery from the sigmoid colon. The rectum grossly appeared to be within normal limits. The scope was then retroflexed into the distal rectum and moderate-sized internal hemorrhoids were noted, none of which was actively bleeding. The scope was then straightened out, it was subsequently withdrawn, and the patient tolerated the procedure well. IMPRESSION: 1. Suboptimal prep. 2. Transverse colon polyp, removed per snare electrocautery. 3. Sigmoid colon polyps x2, one hot biopsied and one removed per snare electrocautery. 4. Internal hemorrhoids, none actively bleeding. PLAN: Follow up histology. Initiate high-fiber, low-fat diet. Initiate high-fiber supplement. The patient might benefit from a followup colonoscopy in 3 years. Twin Glass MD [facility] [place] /[id number] cc: Darius Mooney DO
== END | disposition home or self-care (01) ==
LOC: ENDO 10:16
PROVIDERS: ATTEND Internal Medicine Gastroenterology
DX: Z12.11 Encounter for screening for malignant neoplasm of colon (principal); D12.3 Benign neoplasm of transverse colon; D12.5 Benign neoplasm of sigmoid colon; K64.8 Other hemorrhoids; K59.00 Constipation, unspecified; I25.10 Atherosclerotic heart disease of native coronary artery without angina pectoris; I48.91 Unspecified atrial fibrillation; I10 Essential (primary) hypertension; Z01.812 Encounter for preprocedural laboratory examination; Z79.02 Long term (current) use of antithrombotics/antiplatelets; Z79.82 Long term (current) use of aspirin; Z98.61 Coronary angioplasty status; Z68.33 Body mass index [BMI] 33.0-33.9, adult
CPT/HCPCS: 36415; 45384; 45385; 85025; 88305; J1610; J2704; 45378